=== PATIENT | male | born 1945 | race Caucasian/White ===

== ENCOUNTER 2021-02-14 00:27 | Emergency (ER) | payer OTHER ==
[~2021-02-14] VITALS: Ht 182.9 cm; Wt 88.5 kg
[2021-02-14] MEDS ORDERED: PENICILLIN VK500 M1 PO (03:20)
[2021-02-14 03:25] VITALS: BP 131/78
== END 2021-02-14 03:27 | disposition home or self-care (01) ==
LOC: ER 00:27
DX: K12.2 Cellulitis and abscess of mouth (principal)